=== PATIENT | male | born 1990 | race Caucasian/White ===

== ENCOUNTER 2020-06-11 10:46 | Emergency (ER) | payer MEDICAID ==
[~2020-06-11] VITALS: Ht 180.3 cm; Wt 93.0 kg
[2020-06-11 11:12] VITALS: Ht 180.3 cm; Wt 93.0 kg
[2020-06-11 14:25] VITALS: BP 128/79
== END 2020-06-11 14:25 | disposition home or self-care (01) ==
LOC: ED 10:46
DX: G89.29 Other chronic pain (principal); M54.5 Low back pain
CPT/HCPCS: J1885; J3010